=== PATIENT | female | born 1995 | race Two or more races ===

== ENCOUNTER 2016-12-08 06:56 | Emergency (ER) | payer SELFPAY ==
--- NOTE | 2016-12-08 07:37 | PD ---
HPI Travel History International Travel<30 Days: No Contact w/Intl Traveler<30Days: No Known Affected Area: No History of Present Illness HPI This patient is a 21-year-old 2 para 1 her EDC based on a bedside ultrasound which was done on November 30 is May 07 2017 Which Would make her at 18 weeks and 4 days she presents the chief complaint of decreased movement. [facility] is on December 10 No bleeding low leaking of fluid has occasional cramps Occasional nausea urinalysis done November 30 culture not indicated History Past Medical History Narrative Medical No known drug allergies no major medical problems Obstetric History Obstetric History First baby born January 20, 2017 male infant weight 6 lbs. 9 oz. vaginal delivery uncomplicated Past Surgical History Surgical History: No Previous Surgery Family History Narrative Family History Heart disease Hypertension Social History Alcohol Use: No Tobacco Use: No Substance Abuse: No Allergies-Medications (Allergen,Severity, Reaction): Coded Allergies: No Known Allergies (Unverified , 11/30/16) Review of Systems General / Constitutional: Other (not feeling the baby move) Gastrointestinal: Nausea (occasional nausea), Abdominal Pain (occasional cramps ) Physical Exam Narrative GENERAL: Well-nourished, well-developed patient. Alert oriented 3 and cooperative in no acute distress CARDIOVASCULAR: Regular rate and rhythm without murmurs, gallops, or rubs. RESPIRATORY: Breath sounds equal bilaterally. No accessory muscle use. BREASTS: Bilateral exam showed no masses , no retractions, no nipple discharge. ABDOMEN/GI: Abdomen soft, non-tender, bowel sounds present, no rebound, no guarding soft nontender Gravid to [-] weeks size 18 weeks size Fundal Height: [-] GENITOURINARY: Pelvic exam is deferred as the cervical length was measured on ultrasound and there is no funneling External Genitalia: intact and normal in appearance FHT's: Baseline: [-]134 EXTREMITIES: No cyanosis or edema. NEUROLOGICAL: Awake and alert. Motor and sensory grossly within normal limits. Five out of 5 muscle strength in all muscle groups. Normal speech. Data Data Vital Signs Reviewed: Yes (blood pressure 111/73 pulse is 70 respiration 18 temp 97.3 ) Labs Bedside ultrasound is done the heart rate is 134 Anterior low-lying grade 1 placenta is may be the reason why she is not feeling activity cervical length is 3.96 there is no funneling BPD is consistent with 18 weeks and 3 days Baby is very active No abruption MDM Medical Record Reviewed: No Interpretation(s) 21-year-old 18 weeks and 3 days Positive movement No evidence of threatened Adequate growth on ultrasound Plan Patient is to keep her appointment on Saturday By mouth fluid hydration Diagnosis Diagnosis: Primary Impression: Decreased movement Qualified Code: O36.8120 - Decreased movement, second trimester, not applicable or unspecified fetus Additional Impression: 18 weeks gestation of Disposition: 01 DISCHARGE HOME Condition: Stable Patient Instructions: General Instructions, Early Labor Signs (ED), Movement (ED), Abdominal Pain in (ED) Departure Forms: Tests/Procedures Marissa Camacho MD Dec 08, 2016 07:37
[2016-12-10] MEDS ORDERED: PREN1CAP7 PO (13:49)
[2016-12-25] MEDS ORDERED: METR-1 PO (09:05)
[2017-01-17] MEDS ORDERED: METR-1 PO (14:00)
== END 2016-12-08 07:50 | disposition home or self-care (01) ==
LOC: HOBED 06:56
DX: O36.8120 Decreased fetal movements, second trimester, not applicable or unspecified (principal); Z3A.18 18 weeks gestation of pregnancy
CPT/HCPCS: 76815

== ENCOUNTER → 2017-01-28 | Outpatient (CLI) | payer OTHER ==
[~2017-01-28] MED LIST: ACET1TAB86 PO; IBUP-232 PO; IBUP800T23 PO; METR-1 PO; ORTH0.35 PO; PREN1CAP7 PO; SENN1TAB PO
[2017-01-28 09:33] LABS: HEMATOCRIT 36.1 % (35.0-46.0); REVIEW FLAG FINAL
== END ==
LOC: CLAB 07:59
PROVIDERS: ATTEND Nurse Practitioner Women's Health
DX: Z13.0 Encounter for screening for diseases of the blood and blood-forming organs and certain disorders involving the immune mechanism (principal); Z13.1 Encounter for screening for diabetes mellitus; Z20.828 Contact with and (suspected) exposure to other viral communicable diseases; Z11.59 Encounter for screening for other viral diseases
CPT/HCPCS: 36415; 82951; 85014; 85018; 86703; 87340

== ENCOUNTER 2017-03-08 14:14 | Emergency (ER) | payer MEDICAID, OTHER ==
[~2017-03-08 14:14] MED LIST changes: -ACET1TAB86 PO; -IBUP-232 PO; -IBUP800T23 PO; -METR-1 PO; -ORTH0.35 PO; -SENN1TAB PO
--- NOTE | 2017-03-08 15:05 | PD ---
HPI Chief Complaint Abdominal Pain Date Seen: Mar 08, 2017 Travel History International Travel<30 Days: No Contact w/Intl Traveler<30Days: No Known Affected Area: No History of Present Illness HPI Pt is a 21 at 31/3 weeks gestation that presents to the [facility] ED with a chief complaint of abdominal pain that began this morning around 8am after she had a bowel movement and drank some juice. The pain is across her mid-to- lower abdomen and she describes it as 6-7/10, intermittent, sharp pain that starts on either side. She also complains of nausea x 3 and 5/10 sharp pain that began after the abdominal pain. She denies vaginal bleeding but says that she felt some different type of fluid when she peed this morning. She also had some mucus discharge but denies blood. She denies foul-smelling discharge and dysuria. She has been feeling her baby move more than usual this morning and noted that she stops moving when the pain stops. Last sexual intercourse was 2 weeks ago. Pt gets her care at [facility], her last visit was on 02/28. All her labs so far have been negative or within normal limits. Para: 1 : 2 Miscarriage: 0 : 0 History Past Medical History Medical History: Denies Significant Hx Obstetric History Obstetric History Past Surgical History Surgical History: No Previous Surgery Family History Narrative Family History Aunts and brother have hypertension Social History Alcohol Use: No Tobacco Use: No Substance Abuse: No Allergies-Medications (Allergen,Severity, Reaction): Coded Allergies: No Known Allergies (Unverified , 02/28/17) Home Meds Active Scripts W/O Vit A W/ Fe Fumar (Citranatal [place])27-1-260 Mg Cap1 Cap PO DAILY #30 CAP Ref 11 Prov:Leti Sierra 12/10/16 W/O Vit A W/ Fe Fumar (Citranatal [place])27-1-260 Mg Cap Sample #2 Prov:Leti Sierra 12/10/16 Review of Systems General / Constitutional: No: Fever, Chills HENT: Headaches Cardiovascular: Chest Pain or Discomfort Respiratory: No: Cough, Short of Breath Gastrointestinal: Nausea, Abdominal Pain, No: Vomiting, Diarrhea Genitourinary: Discharge, No: Dysuria, Vaginal Bleeding Musculoskeletal: No: Edema Skin: No Rash Neurologic: No: Weakness Physical Exam Narrative GENERAL: Well-nourished, well-developed patient. SKIN: Warm and dry. HEAD: Normocephalic and atraumatic. EYES: No scleral icterus. No injection or drainage. ENT: No nasal drainage noted. Mucous membranes pink. Airway patent. NECK: Supple, trachea midline. No JVD. CARDIOVASCULAR: Regular rate and rhythm without murmurs, gallops, or rubs. RESPIRATORY: Breath sounds equal bilaterally. No accessory muscle use. BREASTS: Bilateral exam showed no masses , no retractions, no nipple discharge. ABDOMEN/GI: Abdomen soft, slightly tender to palpation, bowel sounds present, no rebound, no guarding Gravid to 31 weeks size GENITOURINARY: External Genitalia: intact and normal in appearance Cervix: Long, thick, closed Uterine Contractions: none FHT's: Category: 1 Baseline: 145 Reactive: Yes, up to 160 Variability: Moderate Decels: None EXTREMITIES: No cyanosis or edema. BACK: Nontender without obvious deformity. No CVA tenderness. NEUROLOGICAL: Awake and alert. Motor and sensory grossly within normal limits. Five out of 5 muscle strength in all muscle groups. Normal speech. Data Data Vital Signs Reviewed: Yes [facility] Medical Record Reviewed: Yes Interpretation(s) 21 at 31/3 weeks gestation presents with abdominal pain that is likely due to movement Plan Intrauterine - tracing category I - reassuring -Continue monitoring for minimum 20 minutes -No contractions on tocometer -Cervix: long, thick, closed -Oral hydration -Urinalysis not indicative of infection -Labor precautions -F/U with OB provider as scheduled Diagnosis Diagnosis: Primary Impression: Abdominal pain affecting Condition: Stable EkNita stiles MD R1 Mar 08, 2017 15:05 Nita Wray MD R1 Mar 08, 2017 15:05
[2017-03-08 15:22] LABS: BLOOD, URINE NEG (NEG); COMMENT (UR) CULT NOT INDICATED; CULTURE IF INDICATED CULT NOT INDICATED; GLUCOSE,URINE NEG (NEG); KETONE, URINE NEG (NEG); MUCUS URINE FEW /lpf (OCC); NITRITE,URINE NEG (NEG); PH, URINE 6.5 (5.0-8.5); SQUAMOUS EPITHELIAL CELL URINE 1 /hpf (0-5); URINE COLOR YELLOW (YELLW/STRAW)
[2017-03-08] MEDS ORDERED: MEPERIDINE HCL 25 MG/ML VIAL IM ONE (16:00)
--- NOTE | 2017-03-08 16:33 | PD ---
History of Present Illness Date Seen: Mar 08, 2017 History of Present Illness This patient is a 21-year-old at 31 weeks had some abdominal pains. No bleeding or ruptured membranes heart rate tracing reactive she is not keke. Cervix is closed and high. Patient was given a shot of Demerol for pain. Urinalysis negative. The patient could be discharged home to bedrest, Tylenol liberally, heating pad or hot bath increase oral fluids. Angelito De Oliveira II, MD Mar 08, 2017 16:33
== END 2017-03-08 16:53 | disposition home or self-care (01) ==
LOC: HOBED 14:14
DX: O26.893 Other specified pregnancy related conditions, third trimester (principal); R10.9 Unspecified abdominal pain; O21.9 Vomiting of pregnancy, unspecified; Z3A.31 31 weeks gestation of pregnancy
CPT/HCPCS: 81001; 96372; 99284; J2175

== ENCOUNTER 2017-03-21 13:18 | Emergency (ER) | payer MEDICAID ==
[2017-03-21] VITALS (7 sets, daily range): BP systolic 113–131; BP diastolic 69–81; PULSE 74–88; RESP 14–18; TEMP 98.2–98.3; O2SAT 98
[~2017-03-21] VITALS: Ht 188 cm; Wt 70.0 kg
--- NOTE | 2017-03-21 13:38 | PD ---
Physical Exam Time Seen by Provider: 13:36 Narrative 21yo F w/ ARIAS x1 week. 32 weeks ; denies and cramping, abd pain, vag bleeding. Denies hx of ARIAS. Denies N/V/F. Current ARIAS 09/10. BP 131/77 in triage. Patient stable. Patient seen in triage. Awaiting bed placement. Data Data Last Documented VS Vital Signs Date Time Temp Pulse Resp B/P Pulse Ox O2 Delivery O2 Flow Rate FiO2 03/21/17 13:22 98.2 82 14 131/77 98 MDM Supervised Visit with LIZETTE: Qian Montaño Mar 21, 2017 13:38
--- NOTE | 2017-03-21 14:27 | PD ---
HPI Chief Complaint Headaches x 1 week Date Seen: Mar 21, 2017 (Nita Wray MD R1) Travel History International Travel<30 Days: No Contact w/Intl Traveler<30Days: No Known Affected Area: No (Nita Wray MD) History of Present Illness HPI Pt is a 21 at 31/3 weeks gestation that presents to the [facility] ED with a chief complaint of 10/10 and band like, frontal headache that radiates to behind her ears and the back of her head of one week duration. She describes the headache as constant, sharp, and sometimes pounding pain that is worse when she touches her face and increased in intensity yesterday. Associated symptoms include blurry vision, lightheadedness, and photophobia. Patient also states that she's had nausea with 1 episode of vomiting yesterday and 4-5 episodes of nonbloody diarrhea in 12 midnight to 3 AM this morning. She also has shortness of breath earlier today and pressure-like chest pain which did not last long. She saw her OB provider last week who told her to try some Tylenol and get some rest, but none of these measures helped. Pt gets her care at [facility], her last visit was on 02/28. All her labs so far have been negative or within normal limits. Para: 1 : 2 Miscarriage: 0 : 0 (Nita rWay MD R1) History Past Medical History Medical History: Denies Significant Hx (Nita Wray MD) Obstetric History Obstetric History (Nita Wray MD) Past Surgical History Surgical History: No Previous Surgery (Nita Wray MD) Family History Narrative Family History Aunts and brother have hypertension (Nita Wray MD) Social History Alcohol Use: No Tobacco Use: No Substance Abuse: No (Nita Wray MD) Allergies-Medications (Allergen,Severity, Reaction): Coded Allergies: No Known Allergies (Unverified , 03/21/17) Home Meds Active Scripts W/O Vit A W/ Fe Fumar (Citranatal [place])27-1-260 Mg Cap1 Cap PO DAILY #30 CAP Ref 11 Prov:Leti Sierra 12/10/16 W/O Vit A W/ Fe Fumar (Citranatal [place])27-1-260 Mg Cap Sample #2 Prov:RigoLetimelly ROSENBERG 12/10/16 Review of Systems General / Constitutional: No: Fever, Chills Eyes: Blurred Vision, Visual changes HENT: Headaches, Lightheadedness Cardiovascular: Chest Pain or Discomfort (pressure) Respiratory: Short of Breath, No: Cough Gastrointestinal: Nausea, Vomiting, Diarrhea Genitourinary: No: Dysuria, Discharge, Vaginal Bleeding Musculoskeletal: No: Weakness Skin: No Rash (Nita Wray MD R1) Physical Exam Vital Signs Date Time Temp Pulse Resp B/P Pulse Ox O2 Delivery O2 Flow Rate FiO2 03/21/17 13:22 98.2 82 14 131/77 98 Narrative GENERAL: Well-nourished, well-developed patient. SKIN: Warm and dry. HEAD: Normocephalic and atraumatic. EYES: No scleral icterus. No injection or drainage. ENT: No nasal drainage noted. Mucous membranes pink. Airway patent. NECK: Supple, trachea midline. No JVD. CARDIOVASCULAR: Regular rate and rhythm without murmurs, gallops, or rubs. RESPIRATORY: Breath sounds equal bilaterally. No accessory muscle use. ABDOMEN/GI: Abdomen soft, non-tender, bowel sounds present, no rebound, no guarding Gravid to 33 weeks size GENITOURINARY: Cervix: [-] Dilatation: [-] Effacement: [-] Station: [-] Presentation: [-] Membranes: intact Uterine Contractions: [-] FHT's: Category: [-] Baseline: [-] Reactive: [-] Variability: [-] Decels: [-] EXTREMITIES: No cyanosis or edema. BACK: Nontender without obvious deformity. No CVA tenderness. NEUROLOGICAL: Awake and alert. Motor and sensory grossly within normal limits. Five out of 5 muscle strength in all muscle groups. Normal speech. (Nita Wray MD R1) Vital Signs Date Time Temp Pulse Resp B/P Pulse Ox O2 Delivery O2 Flow Rate FiO2 03/21/17 15:59 74 113/69 03/21/17 15:58 18 03/21/17 15:29 98.3 03/21/17 14:44 88 122/81 03/21/17 14:37 18 03/21/17 14:36 87 125/80 03/21/17 13:22 98.2 82 14 131/77 98 Narrative Occasional UC noted intermittently CAT I FHT ffn NEG SVE: closed/thick/high (Belen Barry MD) Data Data Vital Signs Reviewed: Yes (Nita Wray MD R1) Vital Signs Reviewed: Yes Labs Laboratory Tests Test 03/21/17 03/21/17 15:22 18:00 Urine Color YELLOW (YELLW/STRAW) Urine Turbidity CLEAR (CLEAR) Urine pH 7.0 (5.0-8.5) Urine Specific [place] 1.014 (1.002-1.035) Urine Protein NEG mg/dL (NEG-TRACE) Urine Glucose (UA) NEG mg/dL (NEG) Urine Ketones NEG mg/dL (NEG) Urine Occult Blood NEG (NEG) Urine Nitrite NEG (NEG) Urine Bilirubin NEG (NEG) Urine Urobilinogen LESS THAN 2.0 MG/DL (LESS THAN 2.0) Urine Leukocyte Esterase NEG (NEG) Urine RBC LESS THAN 1 /hpf (0-3) Urine WBC 1 /hpf (0-5) Urine Squamous Epithelial 1 /hpf (0-5) Cells Urine Renal Epithelial Cells <1 /hpf (NONE) Microscopic Urinalysis Comment CULT NOT INDICATED Fibronectin NEGATIVE (NEGATIVE) (Belen Barry MD) [facility] Medical Record Reviewed: Yes Interpretation(s) 21 at 33/2 weeks gestation presents with headache of 1 week duration and multiple other complaints including blurry vision, dizziness, nausea, vomiting, and diarrhea. Plan Intrauterine - tracing category I - reassuring with no contractions on tocometer initially -BP wnl at 125/80 and 122/81 on recheck -Urinalysis not indicative of infection -Due to patient's history of headaches with multiple episodes of diarrhea will give 1 L bolus of IV fluids -Patient was given Tylenol 1000 mg PO but headache did not improve -Next, Meperidine 50mg IM, Vistaril 50 mg PO, and Zofran 4mg IV were administered and headache was completely diminished -However, she started having contractions so fibronectin was performed -F/U with OB provider as scheduled (Nita Wray MD R1) Attending Attestation 33 weeks Migraine ARIAS and dehydration. Resolved with IV Demerol after IV hydration and Tylenol. UA negative Occasional UC noted. Negative Exam. FFn NEG (Belen Barry MD) Diagnosis Diagnosis: Primary Impression: Headache in , antepartum Additional Impressions: 33 weeks gestation of Irregular uterine contractions Disposition: 01 DISCHARGE HOME Condition: Stable Eko,Nita Walker MD R1 Mar 21, 2017 14:26 Belen Barry MD Mar 21, 2017 18:49
[2017-03-21] MEDS ORDERED: SODIUM CHLOR 0.9% 1000 ML INJ 1,000 ML IV SCH (14:57)
[2017-03-21] MEDS ORDERED: ACETAMINOPHEN 500 MG CPLT PO ONE (15:15)
[2017-03-21 15:42] LABS: BLOOD, URINE NEG (NEG); COMMENT (UR) CULT NOT INDICATED; CULTURE IF INDICATED CULT NOT INDICATED; GLUCOSE,URINE NEG (NEG); KETONE, URINE NEG (NEG); NITRITE,URINE NEG (NEG); RENAL EPITHELIAL CELLS <1 /hpf; SQUAMOUS EPITHELIAL CELL URINE 1 /hpf (0-5); URINE COLOR YELLOW (YELLW/STRAW)
[2017-03-21] MEDS ORDERED: MEPERIDINE HCL 50 MG/ML VIAL IM ONE (17:00)
[2017-03-21] MEDS ORDERED: ONDANSETRON HCL 4 MG/2 ML VIAL IV PUSH ONE (17:00)
== END 2017-03-21 19:21 | disposition home or self-care (01) ==
LOC: HOBED 13:18
DX: O26.893 Other specified pregnancy related conditions, third trimester (principal); O62.2 Other uterine inertia; R51 Headache; Z3A.33 33 weeks gestation of pregnancy
CPT/HCPCS: 59025; 81001; 82731; 96361; 96372; 96374; 99284; J2175; J2405; J7030

== ENCOUNTER 2017-05-01 01:50 | Emergency (ER) | payer MEDICAID ==
--- NOTE | 2017-05-01 02:47 | PD ---
HPI Chief Complaint Possible rupture membranes Date Seen: May 01, 2017 Time Seen: 02:42 Travel History International Travel<30 Days: No Contact w/Intl Traveler<30Days: No Known Affected Area: No History of Present Illness HPI 22-year-old at 39 weeks and 1 day comes in complaining of vaginal discharge that was moderate, concerned that she had broken her bag of water. Patient also complains of groin pain and groin pressure. She is a history of a vaginal delivery in the past with a 6 lbs. 7 oz. child, patient was thought to have small for gestational age this and is receiving ultrasound tomorrow to ensure good growth Para: 1 : 2 History Past Medical History Medical History: Denies Significant Hx Obstetric History Obstetric History Spontaneous vaginal delivery Past Surgical History Surgical History: No Previous Surgery Family History Family History: Negative Social History Alcohol Use: No Tobacco Use: No Substance Abuse: No Allergies-Medications (Allergen,Severity, Reaction): Coded Allergies: No Known Allergies (Unverified , 04/30/17) Home Meds Active Scripts W/O Vit A W/ Fe Fumar (Citranatal [place])27-1-260 Mg Cap1 Cap PO DAILY #30 CAP Ref 11 Prov:Leti Sierra 12/10/16 W/O Vit A W/ Fe Fumar (Citranatal [place])27-1-260 Mg Cap Sample #2 Prov:Leti Sierra 12/10/16 Review of Systems Except as stated in HPI: all other systems reviewed are Neg Physical Exam Narrative GENERAL: Well-nourished, well-developed patient. SKIN: Warm and dry. HEAD: Normocephalic and atraumatic. NECK: Supple, trachea midline. No JVD. CARDIOVASCULAR: Regular rate and rhythm without murmurs, gallops, or rubs. RESPIRATORY: Breath sounds equal bilaterally. No accessory muscle use. ABDOMEN/GI: Abdomen soft, non-tender, bowel sounds present, no rebound, no guarding Gravid to [-35] weeks size Fundal Height: [-] GENITOURINARY: External Genitalia: intact and normal in appearance BUS glands: [-Normal] Cervix: [Very posterior-] Dilatation: [1-2-] Effacement: [-50] Station: [-2-] Presentation: [-Vertex] Membranes: [intact with negative amnisure] Uterine Contractions: [-Irritability] FHT's: Category: [-1] Baseline: [140-] Reactive: [-Moderate] Variability: [Moderate-] Decels: [-Absent] EXTREMITIES: No cyanosis or edema. BACK: Nontender without obvious deformity. No CVA tenderness. NEUROLOGICAL: Awake and alert. Motor and sensory grossly within normal limits. Five out of 5 muscle strength in all muscle groups. Normal speech. Data Data Vital Signs Reviewed: Yes [facility] Medical Record Reviewed: Yes Plan 22 yo G21 with intact membranes and negative amnisure Patient is not in labor, cervix is unchanged (cervix 2cm in office yesterday) without uterine contractions Possible SGA - last also SGA, has ultrasound tomorrow Diagnosis Diagnosis: Primary Impression: 39 weeks gestation of Additional Impressions: SGA (small for gestational age) Intact amniotic membranes during in third trimester False labor after 37 completed weeks of gestation Disposition: 01 DISCHARGE HOME Bina Gill MD May 01, 2017 02:47
== END 2017-05-01 03:00 | disposition home or self-care (01) ==
LOC: HOBED 01:50
DX: O47.1 False labor at or after 37 completed weeks of gestation (principal); O36.5930 Maternal care for other known or suspected poor fetal growth, third trimester, not applicable or unspecified; Z3A.39 39 weeks gestation of pregnancy
CPT/HCPCS: 84112; 99284

== ENCOUNTER 2017-05-01 11:31 | Inpatient (IN) | payer MEDICAID ==
[2017-05-01] VITALS (36 sets, daily range): BP systolic 96–141; BP diastolic 49–98; PULSE 66–110; RESP 16–20; TEMP 98–98.8
[2017-05-01] MEDS ORDERED: LIDOCAINE HCL 1% 50 ML VIAL INFIL PRN (12:15)
[2017-05-01] MEDS ORDERED: LIDOCAINE HCL 1% 50 ML VIAL I-DERMAL PRN (12:15)
[2017-05-01] MEDS ORDERED: MINERAL OIL 10 ML VIAL TOPICAL PRN (12:15)
[2017-05-01] MEDS ORDERED: LACTATED RINGER'S 1000 ML INJ 1,000 ML IV PRN (12:15)
--- NOTE | 2017-05-01 12:57 | HHI.HP ---
HPI Chief Complaint Induction of labor for oligohydramnios and IUGR Date Seen: May 01, 2017 Time Seen: 12:20 Travel History International Travel<30 Days: No Contact w/Intl Traveler<30Days: No History of Present Illness HPI Patient is a 22-year-old at 39 weeks and 1 day presents as a referral from her doctor's office for IOL for IUGR and oligohydramnios noted on ultrasound today. Patient presented to the OB ED with possible leakage of fluid last night. She was noted to have her bag of fluid intact on physical exam and Amnisure was negative. She reports feeling some contractions about every 20-25 minutes last night. She also had some contractions this morning, but does not know how far apart. She denies vaginal bleeding. She endorses movement. Para: 1 : 2 History Past Medical History Medical History: Denies Significant Hx Obstetric History Obstetric History Patient reports that this is her second . Her first was delivered on 01/20/16 at 41 weeks gestational age, vaginal delivery of a 6 lbs. 7 oz. male here at [place]. Past Surgical History Surgical History: No Previous Surgery Family History Family History: Negative Social History Narrative Social History Patient lives at home with her and baby. She denies any travel during this . Alcohol Use: No Tobacco Use: No Substance Abuse: No Allergies-Medications (Allergen,Severity, Reaction): Coded Allergies: No Known Allergies (Unverified , 04/30/17) Home Meds Active Scripts W/O Vit A W/ Fe Fumar (Citranatal [place])27-1-260 Mg Cap1 Cap PO DAILY #30 CAP Ref 11 Prov:Leti Sierra 12/10/16 W/O Vit A W/ Fe Fumar (Citranatal [place])27-1-260 Mg Cap Sample #2 Prov:Leti Seirra 12/10/16 Review of Systems General / Constitutional: No: Fever, Chills Eyes: No: Blurred Vision, Visual changes HENT: No: Headaches Cardiovascular: No: Chest Pain or Discomfort, Edema Respiratory: No: Short of Breath Gastrointestinal: No: Nausea, Vomiting, Diarrhea, Abdominal Pain Genitourinary: No: Dysuria Musculoskeletal: No: Edema Skin: No Rash Neurologic: No: Headache Physical Exam Except for one episode of tachycardia to 102, patient has been afebrile with vital signs stable and within normal limits. Narrative GENERAL: Well-nourished, well-developed patient. SKIN: Warm and dry. HEAD: Normocephalic and atraumatic. EYES: No scleral icterus. No injection or drainage. ENT: No nasal drainage noted. Mucous membranes pink. Airway patent. NECK: Supple, trachea midline. No JVD. CARDIOVASCULAR: Regular rate and rhythm without murmurs, gallops, or rubs. RESPIRATORY: Breath sounds equal bilaterally. No accessory muscle use. ABDOMEN/GI: Abdomen soft, non-tender, bowel sounds present, no rebound, no guarding Gravid to 39 weeks size GENITOURINARY: External Genitalia: intact and normal in appearance Cervix: [-] Dilatation: [-] Effacement: [-] Station: [-] Presentation: [-] Membranes: [intact or ruptured] Uterine Contractions: [-] FHT's: Category: Category 1 Baseline: 135 Reactive: + Variability: Moderate Decels: none EXTREMITIES: No cyanosis or edema. BACK: Nontender without obvious deformity. No CVA tenderness. NEUROLOGICAL: Awake and alert. Motor and sensory grossly within normal limits. Five out of 5 muscle strength in all muscle groups. Normal speech. Data Data Vital Signs Reviewed: Yes Orders Admit To Inpatient (05/01/17 ) Code Status (05/01/17 12:15) Vital Signs (Adult) .Per protocol (05/01/17 12:15) Activity Oob Ad Mandy (05/01/17 12:15) Heart (05/01/17 12:15) Amnioinfusion (05/01/17 12:15) Urinary Catheter Management .ONCE (05/01/17 12:15) Diet Liquid (05/01/17 Lunch) Lactated Ringer's 1000 Ml Inj (Lr 1000 M (05/01/17 13:00) Lactated Ringer's 1000 Ml Inj (Lr 1000 M (05/01/17 12:15) Sodium Chlorid 0.9% 500 Ml Inj (Ns 500 M (05/01/17 13:00) Sodium Chlor 0.9% 1000 Ml Inj (Ns 1000 M (05/01/17 13:00) Lidocaine 1% Inj (50 Ml) (Xylocaine 1% I (05/01/17 12:15) Citric Acid-Sodium Citrate Liq (Bicitra (05/01/17 13:00) Ondansetron Inj (Zofran Inj) (05/01/17 13:00) Fentanyl Inj (Fentanyl Inj) (05/01/17 13:00) Fentanyl Inj (Fentanyl Inj) (05/01/17 13:00) Complete Blood Count With Diff (05/01/17 12:15) Hold Clot (05/01/17 12:15) Abo/Rh Blood Type (05/01/17 12:15) Urinalysis - C+S If Indicated (05/01/17 12:15) Type And Screen (05/01/17 12:15) Resp Oxygen Non Rebreathe Mask (05/01/17 ) ^ Epidural / Intrathecal Infus (05/01/17 12:15) Oxytocin 30 Units-500ml Premix (Pitocin (05/01/17 13:00) Lidocaine 1% Inj (50 Ml) (Xylocaine 1% I (05/01/17 12:15) Light Mineral Oil (Muri-Lube Oil) (05/01/17 12:15) ^ Non Stress Test (05/01/17 12:15) Response To Medication .Post New Med Administration, Reaction (05/01/17 12:15) ^ Discontinue Medication (05/01/17 12:15) Oxytocin 30 Units-500ml Premix (Pitocin (05/01/17 13:00) Inpatient Certification (05/01/17 ) Specimen To Be Collected PRN (05/01/17 12:15) Assessment/Plan Problem List: (1) Intrauterine (2) IUGR, (3) Oligohydramnios Assessment and Plan Patient is a 22-year-old at 39 weeks and 1 day presents as a referral from her doctor's office for IOL for IUGR and oligohydramnios noted on ultrasound today. GBS negative. Patient considering epidural. 1. Induction of labor Admit to inpatient ABO/Rh blood type, hold clot, type and screen Liquid diet LR IV Pitocin IV titration Citric acid-sodium citrate liquid, mineral oil Fentanyl for pain Patient considering epidural Zofran for nausea Monitor heart rate, nonstress test Monitor maternal vital signs We will check cervix and decide whether she needs AROM D/w Dr. De Oliveira. Hola Salazar MD R1 May 01, 2017 12:57
[2017-05-01] MEDS ORDERED: ONDANSETRON HCL 4 MG/2 ML VIAL IV PRN (13:00)
[2017-05-01] MEDS ORDERED: CITRIC ACID-SODIUM CITRATE LIQ 30 ML UDC PO SCH (13:00)
[2017-05-01] MEDS: LACTATED RINGER'S 1000 ML INJ 1,000 ML IV SCH ×2 (13:00→19:50)
[2017-05-01] MEDS ORDERED: OXYTOCIN 30 UNITS-500ML PREMIX 500 ML IV ONE (13:00)
[2017-05-01] MEDS ORDERED: SODIUM CHLORID 0.9% 500 ML INJ 500 ML IV PRN (13:00)
[2017-05-01] MEDS ORDERED: OXYTOCIN 30 UNITS-500ML PREMIX 500 ML IV SCH (13:00)
[2017-05-01] MEDS ORDERED: SODIUM CHLOR 0.9% 1000 ML INJ 1,000 ML IV PRN (13:00)
[2017-05-01 13:17] LABS: AUTOMATED NEUTROPHIL # 5.6 TH/MM3 (1.8-7.7); BASOPHIL % 0.2 % (0.0-2.0); EOSINOPHIL # 0.1 TH/MM3 (0-0.4); EOSINOPHIL % 0.9 % (0.0-4.0); HEMATOCRIT 37.7 % (35.0-46.0); HEMO FLAGS DIFF FINAL; MEAN CELL VOLUME 94.8 FL (80.0-100.0); MEAN CORPUSCULAR HGB CONC 32.7 % (32.0-36.0); MONO % 5.2 % (0.0-8.0); NEUT % 68.7 % (16.0-70.0); PLATELET COUNT 187 TH/MM3 (150-450); RED BLOOD COUNT 3.98 MIL/MM3 (4.00-5.30); RED CELL DISTRIBUTION WIDTH 13.1 % (11.6-17.2); WHITE BLOOD COUNT 8.2 TH/MM3 (4.0-11.0)
[2017-05-01 13:24] LABS: BACTERIA, URINE RARE /hpf; BLOOD, URINE NEG (NEG); COMMENT (UR) CULT NOT INDICATED; CULTURE IF INDICATED CULT NOT INDICATED; GLUCOSE,URINE NEG (NEG); KETONE, URINE NEG (NEG); NITRITE,URINE NEG (NEG); SQUAMOUS EPITHELIAL CELL URINE <1 /hpf (0-5); URINE COLOR LIGHT-YELLOW (YELLW/STRAW)
--- NOTE | 2017-05-01 14:08 | PD.LABORPN ---
Subjective Subjective AROM - clear , cx 1/thick / post . VTX FHR reactive , IUPC placed pit started , cont labor management Objective Vital Signs Vital Signs Date Time Temp Pulse Resp B/P Pulse Ox O2 Delivery O2 Flow Rate FiO2 05/01/17 13:35 80 114/73 05/01/17 13:34 20 05/01/17 12:15 20 05/01/17 12:06 102 130/74 Objective Pelvic Exam: Cervix: [-] Dilatation: [1-] Effacement: [-20] Station: [-3] Presentation: [-vtx] Membranes: [ AROM/ ruptured] Uterine Contractions: [-] FHT's: Category: [-1] Baseline: [-133] Reactive: [-yes] Variability: [mod-] Decels: [0-] Assessment/Plan Problem List: (1) Intrauterine (2) IUGR, (3) Oligohydramnios Angelito De Oliveira II, MD May 01, 2017 14:08
[2017-05-01] MEDS ORDERED: DIPHTH/TETANUS/ACEL PERTUSSIS (BOOSTER) 0.5 ML VIAL/PFS IM ONE (16:00)
[2017-05-01] MEDS ORDERED: MEASLES, MUMPS, RUBELLA VACCINE 0.5 ML VIAL SQ ONE (16:00)
[2017-05-01] MEDS ORDERED: fentaNYL 2MCG-BUPIV 0.125% INJ 100 ML ONE (19:44)
[2017-05-01] MEDS ORDERED: ePHEDrine/NS 25 MG/5 ML SYR ONE (19:44)
[2017-05-01] MEDS ORDERED: DO NOT ADMINISTER ANTICOAGULANTS PRN (20:45)
[2017-05-01] MEDS ORDERED: NO SYSTEM NARCOTICS PRN (20:45)
[2017-05-01] MEDS ORDERED: fentaNYL 2MCG-BUPIV 0.125% 100 ML EPIDURAL SCH (20:45)
[2017-05-01] MEDS ORDERED: ePHEDrine/NS 25 MG/5 ML SYR IV PRN (20:45)
--- NOTE | 2017-05-01 22:13 | PD.OB.DELI ---
Delivery Date: May 01, 2017 Anesthesia: Epidural Episiotomy: None Vaginal Delivery: Normal Presentation: Occiput anterior Nuchal Cord: None Delayed cord clamping (45 sec): Yes Infant: Female One Minute : 8 Five Minute : 9 Weight: 2280g Placenta: Spontaneous delivery, Intact, 3 vessel cord Laceration: No lacerations Jimmy Carmona MD R1 May 01, 2017 22:13
[2017-05-01] MEDS ORDERED: DOCUSATE SODIUM 50 MG/SENNA 8.6 MG TAB PO PRN (22:30)
[2017-05-01] MEDS ORDERED: oxyCODONE/ACETAMINOPHEN 5 MG/325 MG TAB PO PRN (22:30)
[2017-05-01] MEDS ORDERED: SODIUM CHLORIDE 0.9% FLUSH 10 ML FLUSH IV FLUSH PRN (22:30)
[2017-05-01] MEDS ORDERED: ZOLPIDEM TARTRATE 5 MG TAB PO PRN (22:30)
[2017-05-01] MEDS ORDERED: ACETAMINOPHEN 325 MG TAB PO PRN (22:30)
[2017-05-01] MEDS ORDERED: WITCH HAZEL 50%/GLYCERIN 12.5% 40 PAD JAR TOPICAL PRN (22:30)
[2017-05-01] MEDS ORDERED: BENZOCAINE 20% TOPICAL SPRAY 60 ML CAN TOPICAL PRN (22:30)
[2017-05-01] MEDS ORDERED: ALUMINUM/MAGNESIUM/SIMETH 30 ML CUP PO PRN (22:30)
[2017-05-01] MEDS ORDERED: ONDANSETRON ODT 4 MG TAB PO PRN (22:30)
[2017-05-02] MEDS ORDERED: METHYLERGONOVINE MALEATE 0.2 MG/ML VIAL IM ONE (02:30)
[2017-05-02 08:00] VITALS: BP 101/68; PULSE 88; RESP 16; TEMP 97.9
[2017-05-02] MEDS ORDERED: SODIUM CHLORIDE 0.9% FLUSH 10 ML FLUSH IV FLUSH SCH (09:00)
--- NOTE | 2017-05-02 09:04 | HHI.OB ---
Subjective Post Day: 1 Remarks Patient is a 22-year-old delivered at 39 weeks and 1 day. Patient is day 1 after . Patient's pain is well-controlled. Patient reports drinking water without any nausea or vomiting; she has not eaten yet. Patient reports vaginal bleeding like a period but getting better. Patient did receive Methergine 0.2 mg IM at 2:25 AM for vaginal bleeding last night. Patient has passed gas but no bowel movements. Patient is walking without lower extremity pain or shortness of breath. Patient reports desire for OCP contraception upon discharge. Objective Vitals/I&O Vital Signs: except for one episode of high blood pressure to 141/98, one episode of low blood pressure to 96/79, and one episode of tachycardia to 110, AF and VSS. Date Time Temp Pulse Resp B/P Pulse Ox O2 Delivery O2 Flow Rate FiO2 05/01/17 23:30 110 105/60 05/01/17 23:00 92 96/79 05/01/17 22:31 76 119/61 05/01/17 22:17 141/98 05/01/17 22:15 98.3 05/01/17 21:30 69 102/61 05/01/17 21:00 66 98/54 05/01/17 20:30 94 104/72 05/01/17 20:25 76 106/49 05/01/17 20:20 82 103/63 05/01/17 20:15 80 108/59 05/01/17 20:10 79 113/68 05/01/17 20:09 16 05/01/17 20:05 102 05/01/17 20:05 85 132/91 05/01/17 20:01 16 05/01/17 20:00 98.0 16 05/01/17 20:00 82 05/01/17 20:00 91 134/91 05/01/17 19:59 81 131/91 05/01/17 19:31 71 118/75 05/01/17 19:00 85 111/73 05/01/17 18:00 81 110/50 05/01/17 17:54 98.2 20 05/01/17 17:30 66 116/66 05/01/17 17:00 66 113/61 05/01/17 16:30 88 114/70 05/01/17 16:00 78 114/68 05/01/17 15:45 98.8 20 05/01/17 15:42 20 05/01/17 15:30 73 120/75 05/01/17 15:00 83 114/73 05/01/17 14:45 20 05/01/17 14:30 87 110/71 05/01/17 14:04 20 05/01/17 14:00 93 119/58 05/01/17 13:35 80 114/73 05/01/17 13:34 20 05/01/17 12:15 20 05/01/17 12:06 102 130/74 Objective Remarks GENERAL: Well-nourished, well-developed patient. CARDIOVASCULAR: Regular rate and rhythm without murmurs, gallops, or rubs. RESPIRATORY: Breath sounds equal bilaterally. No accessory muscle use. ABDOMEN/GI: Abdomen soft, non-tender. Fundus: Firm, non-tender at umbilicus. GENITOURINARY: Moderate bleeding. EXTREMITIES: No cyanosis or edema, non-tender, without signs of DVT. Medications and IVs Current Medications Medications (Trade) Dose Ordered Sig/Herber Route Start Time Stop Time Status Last Admin (NS Flush) 2 ml BID IV FLUSH 05/02/17 09:00 (NS Flush) 2 ml UNSCH PRN IV FLUSH 05/01/17 22:30 (Tylenol) 650 mg Q4H PRN PO 05/01/17 22:30 (Motrin) 600 mg Q6H PRN PO 05/01/17 22:30 (Percocet 5-325 Mg) 1 tab Q4H PRN PO 05/01/17 22:30 (Percocet 5-325 Mg) 2 tab Q4H PRN PO 05/01/17 22:30 (Americaine 20% Top Spr) 1 spray Q4H PRN TOPICAL 05/01/17 22:30 (Tucks Pads) 1 applic QID PRN TOPICAL 05/01/17 22:30 (Karis-Colace) 2 tab Q12H PRN PO 05/01/17 22:30 (Ambien) 5 mg HS PRN PO 05/01/17 22:30 (Mag-Al Plus Susp Liq) 15 ml Q8H PRN PO 05/01/17 22:30 (Zofran Odt) 4 mg Q6H PRN PO 05/01/17 22:30 Assessment/Plan Problem List: (1) Intrauterine (2) IUGR, (3) Oligohydramnios Assessment and Plan Patient is a 22-year-old delivered at 39 weeks and 1 day. Patient is day 1 after . Patient did receive Methergine 0.2 mg IM at 2:25 AM for vaginal bleeding last night. Patient was counseled to do 6 weeks of pelvic rest. Patient was counseled to follow up in 6 weeks. Patient requested follow- up and contraception with OCP's upon discharge. --Continue to monitor vaginal bleeding --AF VSS --Continue routine care --Motrin and Percocet when necessary for pain --Encourage OOB --Pelvic rest for 6 weeks will need follow-up appointment at that time. --Contraception: OCP's upon discharge --Anticipate discharge tomorrow D/w Dr. De Oliveira. Hola Salazar MD R1 May 02, 2017 09:04 Hola Salazar MD R1 May 02, 2017 09:04
[2017-05-02] MEDS: IBUPROFEN 600 MG TAB PO PRN ×2 (09:59→16:05)
[2017-05-02] MEDS: oxyCODONE/ACETAMINOPHEN 5 MG/325 MG TAB PO PRN (16:05)
[2017-05-03] MEDS: IBUPROFEN 600 MG TAB PO PRN (09:00)
[2017-05-03] MEDS: oxyCODONE/ACETAMINOPHEN 5 MG/325 MG TAB PO PRN (09:00)
--- NOTE | 2017-05-03 09:21 | HHI.OB ---
Subjective Post Day: 2 Remarks Pt seen and examined this morning. day # 2 AFVSS overnight. Decreased lochia. Denies dysuria. No breast tenderness. She is feeding the baby via breast and bottle. Appetite good. No nausea or vomiting. Has had BM. + flatus. Ambulating well. Denies calf pain or shortness of breath. Otherwise, she is doing well this morning and has no other concerns. (Clau Montague MD R2) Objective Objective Remarks GENERAL: Well-nourished, well-developed patient. CARDIOVASCULAR: Regular rate and rhythm without murmurs, gallops, or rubs. RESPIRATORY: Breath sounds equal bilaterally. No accessory muscle use. ABDOMEN/GI: Abdomen soft, non-tender. Fundus: Firm, non-tender at umbilicus. GENITOURINARY: Moderate bleeding. EXTREMITIES: No cyanosis or edema, non-tender, without signs of DVT. Medications and IVs Current Medications Medications (Trade) Dose Ordered Sig/Herber Route Start Time Stop Time Status Last Admin (NS Flush) 2 ml BID IV FLUSH 05/02/17 09:00 (NS Flush) 2 ml UNSCH PRN IV FLUSH 05/01/17 22:30 (Tylenol) 650 mg Q4H PRN PO 05/01/17 22:30 05/02/17 09:59 (Motrin) 600 mg Q6H PRN PO 05/01/17 22:30 05/03/17 09:00 (Percocet 5-325 Mg) 1 tab Q4H PRN PO 05/01/17 22:30 (Percocet 5-325 Mg) 2 tab Q4H PRN PO 05/01/17 22:30 05/03/17 09:00 (Americaine 20% Top Spr) 1 spray Q4H PRN TOPICAL 05/01/17 22:30 05/02/17 09:59 (Tucks Pads) 1 applic QID PRN TOPICAL 05/01/17 22:30 05/02/17 09:58 (Karis-Colace) 2 tab Q12H PRN PO 05/01/17 22:30 05/02/17 16:05 (Ambien) 5 mg HS PRN PO 05/01/17 22:30 (Mag-Al Plus Susp Liq) 15 ml Q8H PRN PO 05/01/17 22:30 (Zofran Odt) 4 mg Q6H PRN PO 05/01/17 22:30 (Clau Montague MD R2) Assessment/Plan Problem List: (1) Intrauterine (2) IUGR, (3) Oligohydramnios Assessment and Plan Patient is a 22-year-old G2 now P2 delivered at 39 weeks and 1 day. Patient is day 2 after . -Continue routine care. 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 -Percocet and Motrin PRN pain. -Encouraged OOB. Advised pelvic rest for 6 wks. -Re: ctrl, she would like OCP and will discuss longer term options with OB care provider. -Anticipate discharge later today. dw Dr. Ramos MD (Clau Montague MD R2) Attending Attestation The exam, history, and the medical decision-making described in the above note were completed with the assistance of the resident provider. I reviewed and agree with the findings presented. I attest that I had a [id number] encounter with the patient on the same day, and personally performed and documented my assessment and findings in the medical record. (Jason Beasley MD) Clau Montague MD R2 May 03, 2017 09:21 Jason Beasley MD May 03, 2017 09:43 --Anticipate discharge tomorrow D/w Dr. De Oliveira. Clau Montague MD R2 May 03, 2017 09:21
[2017-05-03] MEDS ORDERED: IBUP-232 PO (09:23)
[2017-05-03] MEDS ORDERED: ACET1TAB86 PO (09:23)
[2017-05-03] MEDS ORDERED: SENN1TAB PO (09:23)
--- NOTE | 2017-05-03 09:24 | HHI.DCPOC ---
Discharge Care Plan Diagnosis: (1) Vaginal delivery Report Symptoms to Your Doctor -Temperature above 100.5 degrees -Redness, of incision or excessive or foul smelling drainage -Unusual pain or calf pain -Increased vaginal bleeding -Painful or difficulty urinating -Feelings of extreme sadness or anxiety after 2 weeks Goals to Promote Your Health * To prevent worsening of your condition and complications * To maintain your health at the optimal level Directions to Meet Your Goals Take your medications as prescribed Follow your dietary instruction Follow activity as directed Ensure plenty of rest for recovery Drink fluids for hydration Keep your appointments as scheduled Take your immunizations and boosters as scheduled If your symptoms worsen call your PCP, if no PCP go to Urgent Care Center or Emergency Room Smoking is Dangerous to Your Health. Avoid second hand smoke Call the 24-hour crisis hotline for domestic abuse at Clau Montague MD R2 May 03, 2017 09:24
[2017-05-03] MEDS ORDERED: ORTH0.35 PO (09:29)
== END 2017-05-03 11:56 | disposition home or self-care (01) | DRG 774 ==
LOC: H2EB 11:31 → H1EA 23:58
PROVIDERS: ADMIT Obstetrics & Gynecology Maternal & Fetal Medicine; ATTEND Obstetrics & Gynecology Maternal & Fetal Medicine
PROC: 10907ZC Drainage of Amniotic Fluid, Therapeutic from Products of Conception, Via Natural or Artificial Opening (ICD-10-PCS; 2017-05-01)
PROC: 10H07YZ Insertion of Other Device into Products of Conception, Via Natural or Artificial Opening (ICD-10-PCS; 2017-05-01)
PROC: 3E033VJ Introduction of Other Hormone into Peripheral Vein, Percutaneous Approach (ICD-10-PCS; 2017-05-01)
PROC: 3E0S3CZ (ICD-10-PCS; 2017-05-01)
PROC: 00HU33Z Insertion of Infusion Device into Spinal Canal, Percutaneous Approach (ICD-10-PCS; 2017-05-01)
PROC: 10E0XZZ Delivery of Products of Conception, External Approach (ICD-10-PCS; principal; 2017-05-02)
DX: O41.03X0 Oligohydramnios, third trimester, not applicable or unspecified (principal); O72.1 Other immediate postpartum hemorrhage; O36.5930 Maternal care for other known or suspected poor fetal growth, third trimester, not applicable or unspecified; Z3A.39 39 weeks gestation of pregnancy; Z37.0 Single live birth
CPT/HCPCS: 59025; 81001; 85025; 86850; 86900; 86901; 88307; 90715; J2210; J2590; J3010; J7120

== ENCOUNTER 2017-05-26 22:58 | Emergency (ER) | payer MEDICAID ==
[~2017-05-26] VITALS: Ht 188 cm; Wt 70.0 kg
[~2017-05-26 22:58] MED LIST changes: +ACET1TAB86 PO; +IBUP-232 PO; +ORTH0.35 PO; +SENN1TAB PO
[2017-05-26 22:59] VITALS: BP 129/72; PULSE 75; RESP 16; TEMP 97.9; O2SAT 100
--- NOTE | 2017-05-27 00:50 | RADRPT ---
EXAM DATE/TIME: 05/27/2017 00:34 [facility] COMPARISON: FOOT RIGHT COMPLETE ([id number]), August 22, 2016, 13:07. INDICATIONS : Right foot pain from a fall. MEDICAL HISTORY : None. SURGICAL HISTORY : None. ENCOUNTER: Initial ACUITY: 1 day PAIN SCORE: 10/10 LOCATION: Right foot FINDINGS: Three view examination of the right foot demonstrates no soft tissue swelling, dislocation, or fractu re. The tarsal bones appear intact. The interphalangeal and metatarsophalangeal joints are intact. The calcaneus is intact. Bony mineralization is normal. CONCLUSION: No evidence of recent bony injury. Romel Austin MD on May 27, 2017 at 0:47 Board Certified Radiologist. This report was verified electronically.
--- NOTE | 2017-05-27 00:50 | RADRPT ---
EXAM DATE/TIME: 05/27/2017 00:36 [facility] COMPARISON: No previous studies available for comparison. INDICATIONS : Right foot pain from a fall. MEDICAL HISTORY : None. SURGICAL HISTORY : None. ENCOUNTER: Initial ACUITY: 1 day PAIN SCORE: 0/10 LOCATION: Right ankle FINDINGS: Two view examination was performed of the right ankle. The bony structures are in normal alignment. No evidence of fracture, dislocation, or soft tissue swelling. Ankle mortise is intact. No radiopa que foreign bodies are seen. Bony mineralization is normal. CONCLUSION: No evidence of recent bone injury. Romel Austin MD on May 27, 2017 at 0:48 Board Certified Radiologist. This report was verified electronically.
[2017-05-27] MEDS ORDERED: IBUP800T23 PO (00:58)
--- NOTE | 2017-05-27 00:58 | PD ---
HPI Chief Complaint: Injury Time Seen by Provider: 00:23 Travel History International Travel<30 days: No Contact w/Intl Traveler<30days: No Traveled to known affect area: No History of Present Illness HPI Patient's 22-year-old female presented to the emergency room for evaluation of right foot pain. Patient states she tripped down 4 stairs at home. She denies any loss of consciousness but reports right foot pain. The injury occurred approximately 4 hours ago. She rates her pain as a 5 out of 10, worse with ambulation. She states it's painful to move the toes on the right foot. She denies any loss of consciousness, chest pain, shortness of breath. PFSH Past Medical History Medical History: Denies Significant Hx Diminished Hearing: No ?: Not LMP: JUST HAD IT. : 1 Para: 1 Miscarriage: 0 Past Surgical History Surgical History: No Previous Surgery Social History Alcohol Use: No Tobacco Use: No Substance Use: No Allergies-Medications (Allergen,Severity, Reaction): Coded Allergies: No Known Allergies (Unverified , 05/27/17) Reported Meds & Prescriptions Reported Meds & Active Scripts Active Review of Systems Except as stated in HPI: all other systems reviewed are Neg Musculoskeletal: Positive: Myalgias, Arthralgias, Limited ROM Physical Exam Narrative GENERAL: Well-nourished, well-developed patient. SKIN: Focused skin assessment warm/dry. HEAD: Normocephalic. EYES: No scleral icterus. No injection or drainage. NECK: Supple, trachea midline. No JVD or lymphadenopathy. CARDIOVASCULAR: Regular rate and rhythm without murmurs, gallops, or rubs. RESPIRATORY: Breath sounds equal bilaterally. No accessory muscle use. GASTROINTESTINAL: Abdomen soft, non-tender, nondistended. MUSCULOSKELETAL: No cyanosis, or edema. No obvious deformities noted to right foot. Tender to palpation on dorsal aspect of right foot over third through fifth tarsals. Positive pedal pulse compresses and increasing capillary refill. Patient is neurovascularly intact. BACK: Nontender without obvious deformity. No CVA tenderness. Data Data Last Documented VS Vital Signs Date Time Temp Pulse Resp B/P Pulse Ox O2 Delivery O2 Flow Rate FiO2 05/26/17 22:59 97.9 75 16 129/72 100 Room Air Orders Foot, Complete ([id number]) (05/27/17 ) Ankle, Limited (Ap&Lat) (05/27/17 ) Ice/Cold Pack (05/27/17 00:24) MDM Medical Decision Making Medical Screen Exam Complete: Yes Emergency Medical Condition: Yes Interpretation(s) Vital Signs Date Time Temp Pulse Resp B/P Pulse Ox O2 Delivery O2 Flow Rate FiO2 05/26/17 22:59 97.9 75 16 129/72 100 Room Air Differential Diagnosis Fracture versus sprain versus strain versus contusion versus other Narrative Course Patient's 22-year-old female presenting for evaluation of right foot pain after falling approximately 4 hours ago. Patient is neurovascularly intact. There is no obvious deformities noted. Imaging ordered and pending. Patient's vital signs are stable. Imaging is negative for acute abnormality. Patient is encouraged to rest, ice, elevate extremity. She'll be given crutches, she is encouraged to increase weightbearing as tolerated. She is encouraged to follow-up with her primary doctor return to emergency department for any new or worsening symptoms. Patient verbalizes understanding of instructions. Patient stable for discharge. Diagnosis Primary Impression: Right foot injury Qualified Code: S99.921A - Right foot injury, initial encounter Referrals: Primary Care Physician Patient Instructions: Foot Sprain (ED), General Instructions Additional Instructions: Follow-up with her primary doctor Rest, ice, elevate extremity Take medications as directed Return to emergency department for any new or worsening symptoms Med/Other Pt SpecificInfo: Prescription(s) given Scripts Ibuprofen 800 Mg [id number] Mg PO Q6HR PRN (PAIN) #40 TAB Ref 0 Prov:Belinda Elkins 05/27/17 Disposition: 01 DISCHARGE HOME Condition: Stable Belinda Elkins May 27, 2017 00:58
== END 2017-05-27 01:18 | disposition home or self-care (01) ==
LOC: NEPD 22:58
DX: S99.921A Unspecified injury of right foot, initial encounter (principal); W10.9XXA Fall (on) (from) unspecified stairs and steps, initial encounter; Y92.009 Unspecified place in unspecified non-institutional (private) residence as the place of occurrence of the external cause
CPT/HCPCS: 73600; 73630; 99283; E0113

== ENCOUNTER 2018-01-06 15:55 | Emergency (ER) | payer MEDICAID ==
[~2018-01-06 15:55] MED LIST changes: -ACET1TAB86 PO; -IBUP-232 PO; +IBUP1TAB7 PO; -ORTH0.35 PO; -PREN1CAP7 PO; -SENN1TAB PO
[2018-01-06 15:56] VITALS: BP 136/67; PULSE 86; RESP 16; TEMP 97.5; O2SAT 100
--- NOTE | 2018-01-06 20:09 | PD ---
HPI Chief Complaint: Cold / Flu Symptoms Time Seen by Provider: 19:59 Travel History International Travel<30 days: No Contact w/Intl Traveler<30days: No Traveled to known affect area: No History of Present Illness HPI 22-year-old female presents to the ED for evaluation of 3 day history of body aches, left ear pain, left-sided neck pain, sinus congestion, clear rhinorrhea. She endorses occasional, nonproductive cough. She denies fevers, chills, nausea, vomiting. Unsure of any sick contacts. She did not receive this years flu shot. No treatment attempted at home. PFSH Past Medical History Medical History: Denies Significant Hx Cancer: No Cardiovascular Problems: No Diabetes: No Diminished Hearing: No Headaches: No Psychiatric: No Seizures: No ?: Not : 1 Para: 1 Miscarriage: 0 Past Surgical History Surgical History: No Previous Surgery Social History Alcohol Use: No Tobacco Use: No Substance Use: No Allergies-Medications (Allergen,Severity, Reaction): Coded Allergies: No Known Allergies (Unverified Adverse Reaction, Unknown, 01/06/18) Reported Meds & Prescriptions Reported Meds & Active Scripts Active Ibuprofen 600 Mg Tab 600 Mg PO Q8H PRN Amoxicillin 500 Mg Cap 500 Mg PO TID 7 Days Review of Systems Except as stated in HPI: all other systems reviewed are Neg Physical Exam Narrative GENERAL: Well-nourished, well-developed thin female in no acute distress. SKIN: Warm and dry. HEAD: Normocephalic. Atraumatic. EYES: No scleral icterus. No injection or drainage. PERRLA. EOMI. ENT: Pearly ramírez tympanic membranes bilaterally. Left-sided serous effusion. Nasal mucosa is moist. Oropharynx posterior erythema. No edema or exudate. NECK: Supple, trachea midline. Positive right side cervical lymphadenopathy. CARDIOVASCULAR: Regular rate and rhythm without murmurs, gallops, or rubs. RESPIRATORY: Breath sounds clear and equal bilaterally. No accessory muscle use. GASTROINTESTINAL: Abdomen soft, non-tender, nondistended. + Bowel sounds MUSCULOSKELETAL: No cyanosis, or edema BACK: Nontender without obvious deformity. No CVA tenderness. Data Data Last Documented VS Vital Signs Date Time Temp Pulse Resp B/P (MAP) Pulse Ox O2 Delivery O2 Flow Rate FiO2 01/06/18 15:56 97.5 86 16 136/67 (90) 100 Orders Orders Influenzae A/B Antigen (01/06/18 16:08) Amoxicillin (Trimox) (01/06/18 20:15) Ibuprofen (Motrin) (01/06/18 20:15) Ed Discharge Order (01/06/18 20:12) [facility] Medical Decision Making Medical Screen Exam Complete: Yes Emergency Medical Condition: Yes Differential Diagnosis Influenza versus viral syndrome versus otitis media versus otitis externa versus Narrative Course 22-year-old female presents to the ED for evaluation of 3 day history of body aches, left ear pain, left-sided neck pain, sinus congestion, clear rhinorrhea. She endorses occasional, nonproductive cough. She denies fevers, chills, nausea, vomiting. Unsure of any sick contacts. She did not receive this years flu shot. Patient afebrile on presentation. Physical exam reveals left serous otitis media. Patient's prescribed amoxicillin 500 mg 3 times a day 7 days and a short course of anti-inflammatories. First doses administered in the ED. She is instructed to take medications as prescribed, return to the ED for worsening symptoms, otherwise follow up with her nose and throat specialist. She indicated understanding of instructions and is agreeable to the care plan. The patient stable and discharged home.. Diagnosis Primary Impression: Left acute serous otitis media Qualified Codes: H65.02 - Acute serous otitis media, left ear Referrals: Ear / Nose / Throat Specialist Patient Instructions: General Instructions, Serous Otitis Media (ED) Additional Instructions: Rest, hydrate. Begin antibiotics and take them until every pill is gone. Ibuprofen as prescribed, as needed for pain. Follow-up with the primary care provider. Return to the ED for worsening symptoms or any urgent or emergent medical condition. Med/Other Pt SpecificInfo: Prescription(s) given Scripts Ibuprofen (Ibuprofen) 600 Mg Tab 600 MG PO Q8H Y for PAIN, #15 TAB 0 Refills Prov: Cindy Cealya MD 01/06/18 Amoxicillin (Amoxicillin) 500 Mg Cap 500 MG PO TID for Infection for 7 Days, CAP 0 Refills Prov: Cindy Celaya MD 01/06/18 Disposition: 01 DISCHARGE HOME Condition: Stable Barbara Kelley Jan 06, 2018 20:09
[2018-01-06] MEDS ORDERED: AMOX500C PO (20:11)
[2018-01-06] MEDS ORDERED: IBUP-232 PO (20:11)
[2018-01-06] MEDS ORDERED: AMOXICILLIN (TRIHYDRATE) 500 MG CAP PO ONE (20:15)
[2018-01-06] MEDS ORDERED: IBUPROFEN 600 MG TAB PO ONE (20:15)
== END 2018-01-06 20:24 | disposition home or self-care (01) ==
LOC: NEPK 15:55
DX: H65.02 Acute serous otitis media, left ear (principal)
CPT/HCPCS: 87804; 99283

== ENCOUNTER 2018-03-17 20:12 | Emergency (ER) | payer SELFPAY ==
[~2018-03-17 20:12] MED LIST changes: +AMOX500C PO; +IBUP-232 PO; -IBUP1TAB7 PO
[2018-03-17 20:20] VITALS: BP 128/68; PULSE 67; RESP 18; TEMP 97.4; O2SAT 100
--- NOTE | 2018-03-17 21:24 | RADRPT ---
EXAM DATE/TIME: 03/17/2018 20:40 [facility] COMPARISON: No previous studies available for comparison. INDICATIONS : Left foot pain after couch fell and landed on foot. MEDICAL HISTORY : None. SURGICAL HISTORY : None. ENCOUNTER: Initial ACUITY: 1 day PAIN SCORE: 8/10 LOCATION: Left foot. FINDINGS: Three view examination of the left foot demonstrates no soft tissue swelling, dislocation, or fractur e. The tarsal bones appear intact. The interphalangeal and metatarsophalangeal joints are intact. The calcaneus is intact. Bony mineralization is normal. CONCLUSION: No acute disease. Marino Walker MD on March 17, 2018 at 21:19 Board Certified Radiologist. This report was verified electronically.
[2018-03-17] MEDS ORDERED: DICL75TA PO (21:57)
[2018-03-17] MEDS ORDERED: IBUPROFEN 600 MG TAB PO ONE (22:00)
--- NOTE | 2018-03-17 22:11 | PD ---
HPI Chief Complaint: Injury Time Seen by Provider: 21:50 Travel History International Travel<30 days: No Contact w/Intl Traveler<30days: No Traveled to known affect area: No History of Present Illness HPI 22-year-old black female presents emergency department with complaints of left foot pain. Patient states that she dropped a piece of furniture on her left foot yesterday evening around 8 PM moving to a new apartment. The patient states that it injured the top of her left foot. Since then she has had pain with walking. She is unsure whether she had broken it. She had a prior injury in the past. No other injuries at this time. Pain is mild. Exacerbated by direct trauma. Alleviated by elevation. PFSH Past Medical History Narrative Medical Left foot fracture Cancer: No Cardiovascular Problems: No Diabetes: No Diminished Hearing: No Headaches: No Psychiatric: No Immunizations Current: Yes Seizures: No Tetanus Vaccination: < 5 Years ?: Not LMP: 03/11/18 : 1 Para: 1 Miscarriage: 0 Past Surgical History Surgical History: No Previous Surgery Social History Alcohol Use: Yes (SOCIALLY) Tobacco Use: No Substance Use: No Allergies-Medications (Allergen,Severity, Reaction): Coded Allergies: No Known Allergies (Unverified Adverse Reaction, Unknown, 03/17/18) Reported Meds & Prescriptions Reported Meds & Active Scripts Active Diclofenac Sodium DR (Diclofenac Sodium) 75 Mg Tabdr 75 Mg PO BID Ibuprofen 600 Mg Tab 600 Mg PO Q8H PRN Amoxicillin 500 Mg Cap 500 Mg PO TID 7 Days Review of Systems Except as stated in HPI: all other systems reviewed are Neg Physical Exam Narrative GENERAL: This is a well-nourished, well-developed patient, in no apparent distress. SKIN: No rashes, ecchymoses or lesions. Warm and dry. HEAD: Atraumatic. Normocephalic. EYES: PERRL, EOMI, no discharge or injection. No scleral icterus. EARS: Clear NOSE: Nasal turbinates appear normal. THROAT: Mucosa pink and moist. Airway patent. NECK: Trachea midline. supple, moves head freely. LUNGS: Clear to auscultation. CV: Regular in rhythm. ABDOMEN: Soft nontender. EXT: No clubbing cyanosis or edema. Examination of the left foot reveals soft tissue tenderness over the proximal left forefoot. There is no edema, erythema or skin breakdown. She has intact sensation with good distal pulses. No ecchymosis. No pain in the toes, proximal forefoot, heel, Achilles or ankle. Patient ambulates with only minimal antalgic gait. Data Data Last Documented VS Vital Signs Date Time Temp Pulse Resp B/P (MAP) Pulse Ox O2 Delivery O2 Flow Rate FiO2 03/17/18 20:20 97.4 67 18 128/68 (88) 100 Orders Orders Foot, Complete ([id number]) (03/17/18 ) Ed Urine Pregnancytest Poc (03/17/18 20:22) Ibuprofen (Motrin) (03/17/18 22:00) Ed Discharge Order (03/17/18 21:55) MDM Medical Decision Making Medical Screen Exam Complete: Yes Emergency Medical Condition: Yes Medical Record Reviewed: Yes Interpretation(s) Last 24 hours Impressions Foot X-Ray 03/17/18 0000 Signed Impressions: Service Date/Time: Saturday, March 17, 2018 20:40 - CONCLUSION: No acute disease. Marino Walker MD Differential Diagnosis Differential diagnosis: MDM: High Differential diagnoses: Fracture, sprain, strain, dislocation, contusion, neurovascular injury Narrative Course X-ray the left foot is negative for bony injury. Patient is given Motrin 600 mg p.o. This is left foot contusion Diagnosis Primary Impression: Left foot contusion Patient Instructions: General Instructions Departure Forms: Tests/Procedures, Work Release Special Instructions: No work 2 days. Additional Instructions: Rest. Elevation. Ice for the next few days. Diclofenac. Limit activity. Follow-up with a medical doctor or agent broker in 1 week. Return to the ER for emergencies. Med/Other Pt SpecificInfo: Prescription(s) given Scripts Diclofenac Sodium DR (Diclofenac Sodium DR) 75 Mg Tabdr 75 MG PO BID, #14 TAB 0 Refills Prov: James Vang MD 03/17/18 Disposition: 01 DISCHARGE HOME Condition: Stable Ty Vargas Mar 17, 2018 22:11
== END 2018-03-17 22:25 | disposition home or self-care (01) ==
LOC: NEPD 20:12
DX: S90.32XA Contusion of left foot, initial encounter (principal); W20.8XXA Other cause of strike by thrown, projected or falling object, initial encounter
CPT/HCPCS: 73630; 84703; 99283